=== PATIENT | female | born 1990 | race Caucasian/White ===

== ENCOUNTER 2019-05-10 15:27 | Emergency (ER) | payer OTHER, SELFPAY ==
[2019-05-10 15:33] VITALS: BP 165/80; PULSE 67; RESP 16; TEMP 36.8; O2SAT 100
--- NOTE | 2019-05-10 15:34 | ED.GENADULT ---
HPI - General Adult General Chief complaint: Dental/Oral Stated complaint: tooth Ache Time Seen by Provider: 05/10/19 15:40 Source: patient Mode of arrival: ambulatory Limitations: no limitations History of Present Illness HPI narrative: 28-year-old female patient presents to the [facility] with complaints of left upper dental pain for the past 2 days. Patient states that she does have some bad teeth that she is aware of and is supposed to be getting a root canal done from her dentist. Patient states that she did try calling her dental office but they were not in today. Patient states she has had increased pain to the left upper dental cavity area since yesterday. Patient states she has been taking Tylenol, ibuprofen and using Orajel without much relief. Related Data Home Medications Medication Instructions Recorded Confirmed famotidine 10 mg PO DAILY 05/10/19 05/10/19 Allergies Allergy/AdvReac Type Severity Reaction Status Date / Time amoxicillin Allergy Unknown Rash Verified 05/10/19 15:41 Review of Systems Review of Systems: Narrative: CONSTITUTIONAL: Denies fever, chills, or sweats. EYES: Denies visual changes, redness, or discharge. ENT: Denies rhinorrhea, congestion, sore throat, or otalgia. Positive left upper dental pain CARDIOVASCULAR: Denies chest pain, palpitations, or edema. RESPIRATORY: Denies cough or dyspnea. GASTROINTESTINAL: Denies abdominal pain, nausea, vomiting, or diarrhea. GENITOURINARY: Denies dysuria or hematuria. SKIN: Denies rash or itching. MUSCULOSKELETAL: Denies back pain, joint pain, or myalgia. NEUROLOGIC: Denies headache, numbness, or weakness. PSYCHIATRIC: Denies anxiety or depression. PMFSH Comments At the time of my signature I agree with nursing past medical history, surgical, social, and family history. There is no relevant family history pertinent to the presenting complaint. Exam Narrative: Exam Narrative: GENERAL: Well-appearing, well-nourished, and in no acute distress. HEAD: Normocephalic, atraumatic. EYES: PERRLA and EOMI. ENT: Nares clear, no rhinorrhea or epistaxis. Mucous membranes moist. Patient has a broken tooth noted to the left upper oral cavity. There is slight erythema and redness noted to the gum above the tooth. It is tender to the touch. No obvious abscess noted. No swelling noted to the cheek. NECK: Supple. No lymphadenopathy CHEST: Clear to auscultation. No respiratory distress. HEART: Regular rate and rhythm. No murmur heard. Normal peripheral pulses. ABDOMEN: Soft, nontender, nondistended, normal active bowel sounds. EXTREMITIES: Normal range of motion. No edema. SKIN: Warm, dry, no rash. NEURO: No focal deficits. Alert and oriented x3. Course Vital Signs Vital signs: Vital signs reviewed. Medical Decision Making Differential Diagnosis Differential Diagnosis: Differential diagnosis: Dental caries, periodontal disease, avulsed tooth, tooth infections, mandibular infection, Francisco's angiana, upper tooth infection, dry socket, gingivitis, acute necrotizing ulcerative gingivitis, sialolithiasis. Discussed with patient we will go ahead and give her some pain medication to help with the pain while the antibiotic kicks in. Discussed with patient that she should try and call her dentist office on Sunday to see if they have any other recommendations or see if they would be able to get her an to be seen for her tooth. Patient verbalized understanding denies any other questions or concerns at this time. Critical Care Time Critical Care Time Critical Care Time: No Discharge Plan Discharge Clinical Impression: Toothache, Dental caries Patient Disposition: Home, Self-Care Condition: Stable Instructions: Antibiotic Form, Toothache (ED) Additional Instructions: Antibiotic as directed Avoid temperature extremes May apply heat or ice to the face Gentle brushing and flossing Alternate Tylenol and ibuprofen as needed for pain Follow-up with thomas
== END 2019-05-10 15:52 | disposition home or self-care (01) ==
PROVIDERS: Emergency Provider Nurse Practitioner Family
DX: K02.9 Dental caries, unspecified (principal); K21.9 Gastro-esophageal reflux disease without esophagitis
CPT/HCPCS: 99213; G0463

== ENCOUNTER 2023-08-28 16:51 | Emergency (ER) | payer OTHER, SELFPAY ==
--- NOTE | ~2023-08-28 | XR_ITS ---
EXAMINATION: XR foot RT min 3V DATE: 08/28/2023 17:21 INDICATION: Right foot pain and swelling. TECHNIQUE: 4 views of right foot were obtained. COMPARISON: None. FINDINGS: Bone alignment is normal. No fracture. There is mild osteoarthritis of talonavicular joint. There is an enthesophyte of posterior aspect of calcaneal tuberosity. IMPRESSION: 1. Mild talonavicular joint osteoarthritis. Reviewed, dictated and finalized at location E.
[2023-08-28 16:59] VITALS: BP 154/79; PULSE 92; RESP 20; TEMP 36.8
--- NOTE | 2023-08-28 17:00 | ED.SKABFB ---
HPI - Skin/Abscess/Foreign Bdy General Chief complaint: Extremity Problem,Nontraumatic Stated complaint: Rash on leg/foot Source: patient Mode of arrival: ambulatory Limitations: no limitations History of Present Illness HPI narrative: 32 y/o female presented for c/o redness and swelling to the right foot for 2 days. States it started with a small red area to the outer area of the foot, which has spread towards to toes. States this morning after getting out of bed she had severe pain to the foot and had difficulty walking, but was then able to work her shift today. Denies known injury. States she has been doing yardwork and has some insect bites to the ankle. States the left inner heel is starting to hurt today. Denies decreased ROM, bruising, numbness, tingling or weakness of the foot. Denies lip, tongue, or throat swelling, shortness of breath or wheezing. Denies changes to soap, detergent, lotion, or any other exposures. No one else in the house or any contacts with similar symptoms. Related Data Allergies Allergy/AdvReac Type Severity Reaction Status Date / Time amoxicillin Allergy Unknown Rash Verified 08/28/23 17:09 Review of Systems Review of Systems: CONSTITUTIONAL: Denies body aches, fever, chills, or sweats. CARDIOVASCULAR: Denies chest pain, palpitations, or edema. RESPIRATORY: Denies cough or dyspnea. SKIN: Reports redness to right foot MUSCULOSKELETAL: Reports pain and swelling right foot Denies back pain, joint pain, or myalgia. NEUROLOGIC: Denies headache, numbness, tingling, or weakness. PMFSH Comments At time of signature, I have reviewed and agree with nursing past medical, surgical, social and family history unless otherwise noted. Please see nursing chart for further information. There is no relevant family history pertinent to the presenting complaint Exam Narrative: GENERAL: Well-appearing EYES: conjunctivae clear, and EOMI. ENT: Mucous membranes moist. Oropharynx without edema, erythema or lesions. CHEST: Clear to auscultation. HEART: Regular rate and rhythm. SKIN: Warm, dry. Few scattered red papules to ankles c/w insect bites. EXT: right lateral foot erythematous with swelling, tender with palpation to 5th metatarsal. Mild erythema extending towards dorsum at toes.CMS intact. Ankle nontender with palpation. No bruising or deformity. Full ROM to ankle. NEURO: Alert and oriented x3. Course Course Emergency Course: Patient is aware of diagnosis, understands and agrees to treatment plan. Anticipatory guidance given. Patient agrees to follow-up as directed and is aware of reasons to seek care at the emergency department. Portions of this record may have been created with voice recognition software Level of Care: Express Care Visit Vital Signs Vital signs: Vital Signs Temperature 98.2 F 08/28/23 16:59 Pulse Rate 92 08/28/23 16:59 Respiratory Rate 20 08/28/23 16:59 Blood Pressure 154/79 H 08/28/23 16:59 Oxygen Delivery Room Air 08/28/23 16:59 Temperature 98.2 F 08/28/23 16:59 Pulse Rate 92 08/28/23 16:59 Respiratory Rate 20 08/28/23 16:59 Blood Pressure 154/79 H 08/28/23 16:59 Oxygen Delivery Room Air 08/28/23 16:59 Reviewed MDM - Skin/Abscess/Foreign Bdy MDM Narrative Medical decision making narrative: Pt presented with right foot swelling, few scattered insect bites around the ankle. Xray reviewed with pt; no fracture. No known injury. SALO applied. Discussed possible etiologies including sprain/strain vs cellulitis. Will cover for cellulitis at this time. Discussed physical exam findings. Advised supportive measures and signs/symptoms to go to the ER. Pt is appropriate for outpt treatment and f/u. Differential Diagnosis Differential diagnosis: Likely abscess of skin or subcutaneous tissue, urticaria, herpes zoster, cellulitis and contact dermatitis Imaging Data Radiologist's impression: Patient: Tere Bates : 1990 MR#:
== END 2023-08-28 17:42 | disposition home or self-care (01) ==
PROVIDERS: Emergency Provider Nurse Practitioner Family; PCP Nurse Practitioner Family
DX: R22.41 Localized swelling, mass and lump, right lower limb (principal); K21.9 Gastro-esophageal reflux disease without esophagitis
CPT/HCPCS: 73630; 99203; G0463

== ENCOUNTER 2024-08-20 19:15 | Emergency (ER) | payer OTHER, SELFPAY ==
--- OUTSIDE RECORDS SUMMARY | 2024-08-20 19:17 | XMS_ITS | Data Portability ---
[facility] Organization [facility] Address [address] [place] [address] Care Team Providers Care Terra Cotta Setter Name Role Phone FANNIE CHAO Primary Care Provider Assessment Encounter Date Assessment Date Assessment LastModified by Organization Details LastModified Time 04/08/2021 04/08/2021 Verbal consent for telephone visit was obtained and phone call encounter lasted for approximately 10 min including pre/post visit charting. Not available 04/08/2021 13:03:02 Plan of Treatment Reminders Order Date Submit Date Provider Last Modified By Organization Details Last Modified Time Details Appointments None recorded . Lab urinalys is, dipstick 2019 020 In-Office Order, Internal Use Only DO Not Attach Compendium DO Not Attach Compendium, Do Not Delete/merge, [id number] 0 11:25:17 culture, urine 2019 020 [facility], [address] [facility] [address], [place], [address], 0 06:07:27 TSH, ultra-se nsitive, serum 2018 019 [facility], [address] [facility] [address], [place], [address], 0 10:36:44 lipid panel, serum 2018 019 [facility], [address] [facility], [facility] [address], [place], [address], 0 10:36:43 CMP, serum or plasma 2018 019 [facility], [address] [facility], [facility] [address], [place], [address], 0 10:36:42 CBC 2018 019 [facility], [address] [facility], [facility] [address], [place], [address], 0 10:36:42 Referral None recorded . Procedures None recorded . Surgeries None recorded . Imaging MAMMO, diagnost ic, unilater al - Call pt to schedule apt please. 2021 022 [facility]HENA[facility]X [facility] Scheduling, [address] [place], [address], 2 16:00:14 Medication Orders fluticas one propiona te 50 mcg/actu ation nasal spray,mcnulty spension 2018 019 [email or web address] #[id number], [address] [place], [address], 4 09:36:57 cephalex in 500 mg capsule 2018 019 [facility]/Pharmacy #[id number], [address] [place], [address], 0 10:58:07 famotidi ne 10 mg tablet 2018 019 [facility]armacy #[id number], [address] [place], [address], 2 12:45:01 Patient TargetsNo targets recorded. Patient Instructions Encounter Date Encounter Id Patient Instructions Last Modified By Organization Details Last Modified Time 07/22/2018 [id number] tobacco cessation [email or web address] Not availab le 07/22/2018 11:02:19 02/04/2019 [id number] Learning About Benefits of Quitting Smoking Not available 02/04/2019 15:44:33 tobacco cessation Not availabl e 02/04/2019 15:44:33 gastroesophageal reflux disease (GERD): care instructions Not available 02/04/2019 15:44:33 Take all antibio tics prescribed to you. If any fever or increase in pain, call/return to office. Not available 02/18/2019 16:40:36 f/u 6 months- du ring Summer break is fine follow up as needed Not available 02/18/2019 16:41:33 03/26/2019 [id number] Take all antibio tics if prescribed. Do not use bubble baths. Wipe from front to back. Take 500 mg Vitamin C twice a day or try OTC cranberry pills or 100% cranberry juice. Increase fluids. Not available 03/26/2019 11:36:42 04/08/2021 [id number] Cont on current medications. Not available 04/08/2021 13:04:09 follow up as nee ded, yearly to keep established with provider [facility] Not available 04/08/2021 13:04:36 08/21/2023 [id number] wound care for sutures (patient instructions) Not available 08/21/2023 10:17:24 Wound care as discussed. Not available 08/21/2023 10:17:49 follow up as nee ded, yearly to keep established with provider [facility] Not available 08/21/2023 10:18:01 Reason for Referral None Reported. Results Created Date Observation Date Name Description Value Unit Range Abnormal Flag Note LastModifiedBy Organization Detail LastModifiedTime 02/28/19 20 03/01/2019 CMP, serum or plasm a glucose 80 mg/dL 65-99 Not Available [facility] ([facility]) [address] [facility], [place], [address], 03/01/2019 10:36:42 02/28/19 20 03/01/2019 CMP, serum or plasm a BUN 8 mg/dL 6-20 Not Available [facility] ([facility]) [address] [facility], [place], [address], 03/01/2019 10:36:42 02/28/19 20 03/01/2019 CMP, serum or plasm a creatinine 0.63 mg/dL 0.57-1 .00 Not Available [facility] ([facility]) [address] [facility] [place], [address], 03/01/2019 10:36:42 02/28/19 20 03/01/2019 CMP, serum or plasm a eGFR if nonafricn AM 122 mL/mi n/1.7 3 >59 Not Available [facility] ([facility]) [address] [facility] [place], [address], 03/01/2019 10:36:42 02/28/19 20 03/01/2019 CMP, serum or plasm a eGFR if africn AM 141 mL/mi n/1.7 3 >59 Not Available [facility] ([facility]) [address] [place], [address], 03/01/2019 10:36:42 02/28/19 20 03/01/2019 CMP, serum or plasm a BUN/creatini ne ratio 13 9-23 Not Available [facility] ([facility]) [address] [place], [address], 03/01/2019 10:36:42 02/28/19 20 03/01/2019 CMP, serum or plasm a sodium 140 mmol/ L 134-14 4 Not Available [facility] ([facility]) [address] [place], [address], 03/01/2019 10:36:42 02/28/19 20 03/01/2019 CMP, serum or plasm a potassium 4.6 mmol/ L 3.5-5. 2 Not Available [facility] ([facility]) [address] [place], [address], 03/01/2019 10:36:42 02/28/19 20 03/01/2019 CMP, serum or plasm a chloride 100 mmol/ L 96-106 Not Available [facility] ([facility]) [address] [facility], [place], [address], 03/01/2019 10:36:42 02/28/1903/01/2019 CMP, serum or plasm a carbon dioxide, total 25 mmol/ L Not Available [facility] ([facility]) [address] [facility] [place], [address], 03/01/2019 10:36:42 02/28/1903/01/2019 CMP, serum or plasm a calcium 8.9 mg/dL 8.7-10 .2 Not Available [facility] ([facility]) [address] [facility] [place], [address], 03/01/2019 10:36:42 02/28/1903/01/2019 CMP, serum or plasm a protein, total 6.6 g/dL 6.0-8. 5 Not Available [facility] ([facility]) [address] [facility], [place], [address], 03/01/2019 10:36:42 02/28/1903/01/2019 CMP, serum or plasm a albumin 3.8 g/dL 3.5-5. 5 Eff ectiv e Janua ry 2019 Album in refer ence* * inter corey will be guerrero ing to: Age Male Femal e 0 - 7 days 3.6 - 4.9 3.6 - 4.9 8 - 30 days 3.4 - 4.7 3.4 - 4.7 1 - 6 month 3.7 - 4.8 3.7 - 4.8 7 month s - 2 years 3.9 - 5.0 3.9 - 5.0 3 - 5 years 4.0 - 5.0 4.0 - 5.0 6 - 12 years 4.1 - 5.0 4.0 - 5.0 13 - 30 years 4.1 - 5.2 3.9 - 5.0 31 - 50 years 4.0 - 5.0 3.8 - 4.8 51 - 60 years 3.8 - 4.9 3.8 - 4.9 61 - 70 years 3.8 - 4.8 3.8 - 4.8 71 - 80 years 3.7 - 4.7 3.7 - 4.7 81 - 89 years 3.6 - 4.6 3.6 - 4.6 >89 years 3.5 - 4.6 3.5 - 4.6 Not Available [facility] ([facility]) [address] [facility] [place], [address], 03/01/2019 10:36:42 02/28/19 20 03/01/2019 CMP, serum or plasm a globulin, total 2.8 g/dL 1.5-4. 5 Not Available [facility] ([facility]) [address] [facility] [place], [address], 03/01/2019 10:36:42 02/28/1903/01/2019 CMP, serum or plasm a A/G ratio 1.4 1.2-2. 2 Not Available [facility] ([facility]) [address] [place], [address], 03/01/2019 10:36:42 02/28/1903/01/2019 CMP, serum or plasm a bilirubin, total 0.3 mg/dL 0.0-1. 2 Not Available [facility] ([facility]) [address] [place], [address], 03/01/2019 10:36:42 02/28/1903/01/2019 CMP, serum or plasm a alkaline phosphatase 95 IU/L 39-117 Not Available [facility] ([facility]) [address] [place], [address], 03/01/2019 10:36:42 02/28/1903/01/2019 CMP, serum or plasm a AST (SGOT) 14 IU/L 0-40 Not Available [facility] ([facility]) [address] [place], [address], 03/01/2019 10:36:42 02/28/1903/01/2019 CMP, serum or plasm a ALT (SGPT) 15 IU/L 0-32 Not Available [facility] ([facility]) [address] [facility], [place], [address], 03/01/2019 10:36:42 02/28/19 20 03/01/2019 CBC WBC 8.9 x10e3 /uL 3.4-10 .8 Not Available [facility] ([facility]) [address] [facility], [place], [address], 03/01/2019 10:36:42 02/28/19 20 03/01/2019 CBC RBC 4.50 x10e6 /uL 3.77-5 .28 Not Available [facility] ([facility]) [address] [facility], [place], [address], 03/01/2019 10:36:42 02/28/19 20 03/01/2019 CBC hemoglobin 12.6 g/dL 11.1-1 5.9 Not Available [facility] ([facility]) [address] [facility], [place], [address], 03/01/2019 10:36:42 02/28/1903/01/2019 CBC hematocrit 38.1 % 34.0-4 6.6 Not Available [facility] ([facility]) [address] [facility], [place], [address], 03/01/2019 10:36:42 02/28/1903/01/2019 CBC MCV 85 fL 79-97 Not Available [facility] ([facility]) [address] [facility], [place], [address], 03/01/2019 10:36:42 02/28/1903/01/2019 CBC MCH 28.0 pg 26.6-3 3.0 Not Available [facility] ([facility]) [address] [facility], [place], [address], 03/01/2019 10:36:42 02/28/1903/01/2019 CBC MCHC 33.1 g/dL 31.5-3 5.7 Not Available [facility] ([facility]) [address] [facility], [place], [address], 03/01/2019 10:36:42 02/28/19 20 03/01/2019 CBC RDW 13.8 % 11.7-1 5.4 Ple ase note refer ence lee corey guerrero e Not Available [facility] ([facility]) [address] [facility], [place], [address], 03/01/2019 10:36:42 02/28/19 20 03/01/2019 CBC NRBC TREER Not Available [facility] ([facility]) [address] [facility], [place], [address], 03/01/2019 10:36:42 02/28/19 20 03/01/2019 lipid panel , serum cholesterol, total 158 mg/dL 100-19 9 Not Available [facility] ([facility]) [address] [facility], [place], [address], 03/01/2019 10:36:43 02/28/1903/01/2019 lipid panel , serum triglyceride s 71 mg/dL 0-149 Not Available [facility] ([facility]) [address] [facility], [place], [address], 03/01/2019 10:36:43 02/28/1903/01/2019 lipid panel , serum HDL cholesterol 38 mg/dL >39 below low normal Not Available [facility] ([facility]) [address] [facility], [place], [address], 03/01/2019 10:36:43 02/28/1903/01/2019 lipid panel , serum VLDL cholesterol laisha 14 mg/dL 5-40 Not Available [facility] ([facility]) [address] [facility], [place], [address], 03/01/2019 10:36:43 02/28/19 20 03/01/2019 lipid panel , serum LDL cholesterol calc 106 mg/dL 0-99 above high normal Not Available [facility] ([facility]) [address] [facility], [place], [address], 03/01/2019 10:36:43 02/28/19 20 03/01/2019 lipid panel , serum comment: TREER Not Available [facility] ([facility]) [address] [facility], [place], [address], 03/01/2019 10:36:43 02/28/19 20 03/01/2019 TSH, ultra -sens itive , serum TSH 1.590 uIU/m L 0.450- 4.500 Not Available [facility] ([facility]) [address] [facility], [place], [address], 03/01/2019 10:36:43 03/26/19 20 03/29/2019 cultu re, urine urine culture,comp rehensive Final report Not Available [facility] ([facility]) [address] [facility], [place], [address], 03/29/2019 06:07:27 03/26/1903/29/2019 cultu re, urine result 1 Commen t Mixed uroge nital jordan 2,000 Colon ies/m L Not Available [facility] ([facility]) [address] [facility], [place], [address], 03/29/2019 06:07:27 03/26/1903/26/2019 urina lysis , dipst ick Leukocytes Negati ve Not Available In-Office Order Internal Use Only DO Not Attach Compendium DO Not Attach Compendium, Do Not Delete/merge, 03/26/2019 10:59:03 03/26/1903/26/2019 urina lysis , dipst ick Nitrite negati ve Not Available In-Office Order Internal Use Only DO Not Attach Compendium DO Not Attach Compendium, Do Not Delete/merge, [id number] 03/26/2019 10:59:03 03/26/1903/26/2019 urina lysis , dipst ick Urobilinogen .2 Not Available In-Of fice Order Internal Use Only DO Not Attach Compendium DO Not Attach Compendium, Do Not Delete/merge, [id number] 03/26/2019 10:59:03 03/26/1903/26/2019 urina lysis , dipst ick Protein Negati ve Not Available In-Office Order Internal Use Only DO Not Attach Compendium DO Not Attach Compendium, Do Not Delete/merge, [id number] 03/26/2019 10:59:03 03/26/1903/26/2019 urina lysis , dipst ick pH 5.0 Not Available In-Office Order Internal Use Only DO Not Attach Compendium DO Not Attach Compendium, Do Not Delete/merge, 03/26/2019 10:59:03 03/26/1903/26/2019 urina lysis , dipst ick Blood Negati ve Not Available In-Office Order Internal Use Only DO Not Attach Compendium DO Not Attach Compendium, Do Not Delete/merge, [id number] 03/26/2019 10:59:03 03/26/19 20 03/26/2019 urina lysis , dipst ick Specific Chapman 1.030 Not Available In-Off ice Order Internal Use Only DO Not Attach Compendium DO Not Attach Compendium, Do Not Delete/merge, [id number] 03/26/2019 10:59:03 03/26/1903/26/2019 urina lysis , dipst ick Ketone Negati ve Not Available In-Office Order Internal Use Only DO Not Attach Compendium DO Not Attach Compendium, Do Not Delete/merge, [id number] 03/26/2019 10:59:03 03/26/1903/26/2019 urina lysis , dipst ick Bilirubin Negati ve Not Available In-Office Order Internal Use Only DO Not Attach Compendium DO Not Attach Compendium, Do Not Delete/merge, 03/26/2019 10:59:03 03/26/1903/26/2019 urina lysis , dipst ick Glucose Negati ve Not Available In-Office Order Internal Use Only DO Not Attach Compendium DO Not Attach Compendium, Do Not Delete/merge, [id number] 03/26/2019 10:59:03 03/26/1903/26/2019 urina lysis , dipst ick Appearance Clear Not Available In-Offi ce Order Internal Use Only DO Not Attach Compendium DO Not Attach Compendium, Do Not Delete/merge, [id number] 03/26/2019 10:59:03 03/26/19 20 03/26/2019 urina lysis , dipst ick Color Dark Yellow Not Available In-Office Order Internal Use Only DO Not Attach Compendium DO Not Attach Compendium, Do Not Delete/merge, [id number] 03/26/2019 10:59:03 08/05/19 22 07/29/2021 MAMMO , diagn ostic , digit al, bilat eral No observ ation record ed. [email or web address] [facility] [address], [place], [address], 09/01/2021 09:21:51 08/06/19 22 MAMMO , diagn ostic , digit al, bilat eral No observ ation record ed. [email or web address] [facility] Scheduling [address] [place], [address], 08/09/2021 12:23:18 08/06/19 22 US, berta t, bilat eral, w/ axill a No observ ation record ed. [facility] ([facility]) Scheduling [address] [place], [address], 08/09/2021 12:23:19 02/01/20 22 01/31/2022 MAMMO , scree cristofer, digit al, bilat eral No observ ation record ed. [facility] [address] [place], [address], 02/01/2022 12:51:39 Result Notes None recorded. Problems Name Problem SNOMED Code Status Onset Date Resolution Date Notes Provider Name and Address Organization Details Recorded Time Generalized anxiety disorder 77013357 Active Linda Dumont PA-C Attn: Jose g,[address] [facility], [place], [address], [facility] 9 10:38:31 Tenderness of breast 80345905 Active 2021 Fannie Chao APN, FNP-C Attn: Jose hill,[address] [facility], [place], [address], [place] - [facility] 2 13:00:46 Gastroesophage al reflux disease 160619353 Active 2015 Linda Dumont PA-C Attn: Jose hill,[address] [facility] [facility], [place], [address], [place] - [facility] 6 15:25:21 Tobacco user 620015418 Active 2016 Linda Dumont PA-C Attn: Jose hill,[address] [facility], [place], [address], [facility] - [facility] 7 15:56:39 Problem Notes None recorded. Procedures Surgical History Date Name Laterality Status Provider Name and Address Organization Details Recorded Time 08/21/19 24 Suture/Staple removal completed Fannie Chao APN, FNP-C Attn: Accounting,[address], [place], [address], [facility] 08/21/2023 10:17:19 07/19/19 17 Nebulizer tx completed Linda Dumont PA-C Attn: Accounting,[address], [place], [address], [facility] - [facility] 07/18/2016 18:36:36 02/19/19 14 Caesarean Section completed Valencia Eckert, [facility] - [facility] 12/14/2015 15:16:47 02/19/19 09 Caesarean Section completed Valencia Eckert, [facility] 12/14/2015 15:16:38 02/19/19 05 Tonsillectomy completed Valencia Faustining, [facility] - [facility] 12/14/2015 15:16:25 Imaging Results None recorded. Procedure Notes None recorded. Medical Equipment None Reported. Allergies Allergen ID Allergen Name Allergen Category Reaction Reaction Severity Criticality Documentation Date Start Date Code Code System Note Provider Name and Address Organization Details Recorded Time 33330 amoxicill in medicatio n hives severe Not available 12/14/2015 723 RxNorm Valencia Dickinson, DAISY null, [place] - [facility] 6 15:11:22 27562 fish derived food,medi cation hives moderate Not available 12/22/20152015 96755 UNK cod Linda Dumont PA-C Attn: Accountkimberlee g,[address], [place], [address], [facility] - [facility] 6 13:29:29 35411 azithromy romeo medicatio n angioedem a Not available Not available 07/24/2016 03629 RxNorm Linda Dumont PA-C Attn: Accountkimberlee g,[address], [place], [address], [facility] - [facility] 7 18:11:29 Medications Name Sig Start Date Stop Date Status Note LastModified by Organization Details LastModified Time cyclobenz aprine 10 mg tablet Take 1 tablet every day by oral route as needed. 06/05 completed Not Available Not Available Not Available Lice Killing 0.33 %-4 % shampoo USE DIRECTED active Not Available Not Available No t Available prednison e 10 mg tablet 12/13 completed Not Available Not Available Not Available doxycycli ne hyclate 100 mg capsule TAKE 1 CAPSULE BY MOUTH TWICE A DAY FOR 7 DAYS 08/20 completed Not Available Not Available Not Available nicotine 14 mg/24 hr daily transderm al patch Apply 1 patch every day by transder mal route. 06/05 completed pt never started Not Available Not Available Not Available clindamyc in HCl 300 mg capsule TAKE ONE CAPSULE BY MOUTH 4 TIMES A DAY UNTIL GONE 04/08 completed Not Available Not Available Not Available albuterol sulfate 2.5 mg/3 mL (0.083 %) solution for nebulizat ion one neb tx inhaled in office 07/24 completed Not Available Not Available Not Available famotidin e 10 mg tablet Take 1 tablet every day by oral route. 04/08 completed she has been taking tums Not Available Not Available Not Available azithromy romeo 250 mg tablet TAKE 2 TABLETS (500 MG) BY ORAL ROUTE ONCE DAILY FOR 1 DAY THEN 1 TABLET (250 MG) BY ORAL ROUTE ONCE DAILY FOR 4 DAYS 07/24 completed Not Available Not Available Not Available ibuprofen 800 mg tablet 08/20 completed prn Not Available Not Available Not Available Lidocaine Viscous 2 % mucosal solution 12/13 completed Not Available Not Available Not Available tizanidin e 4 mg tablet TAKE 1 TABLET BY MOUTH EVERYDAY AT BEDTIME 03/26 completed prn Not Available Not Available Not Available fluconazo le 150 mg tablet 12/13 completed Not Available Not Available Not Available ranitidin e 300 mg tablet Take 1 tablet every day by oral route at bedtime. 02/04 completed pt thinks she is to be taking famotidi ne Not Available Not Available Not Available prednison e 20 mg tablet Take one tablet daily by mouth daily 07/18 completed Not Available Not Available Not Available permethri n 5 % topical cream 06/05 completed Not Available Not Available Not Available clindamyc in HCl 150 mg capsule 12/13 completed Not Available Not Available Not Available acetamino phen 300 mg-codein e 30 mg tablet 12/13 completed Not Available Not Available Not Available ciproflox acin 500 mg tablet 12/13 completed Not Available Not Available Not Available sulfameth oxazole 800 mg-trimet hoprim 160 mg tablet Take 1 tablet every 12 hours by oral route for 5 days. 09/25 completed Not Available Not Available Not Available omeprazol e 40 mg capsule,d elayed release Take 1 capsule every day by oral route. 06/05 completed Not Available Not Available Not Available tramadol 50 mg tablet 12/13 completed Not Available Not Available Not Available triamcino lone acetonide 0.1 % topical cream APPLY A THIN LAYER TO THE AFFECTED AREA(S) BY TOPICAL ROUTE 2 TIMES PER DAY 06/05 completed Not Available Not Available Not Available acyclovir 800 mg tablet 08/20 completed Not Available Not Available Not Available Tessalon Perles 100 mg capsule Take 1 capsule 3 times a day by oral route. 07/24 completed not Rx Not Available Not Available Not Available propranol ol 10 mg tablet take 1 tab PO TID PRN anxiety 04/08 completed Not Available Not Available Not Available famotidin e 20 mg tablet TAKE 1 TABLET BY MOUTH TWICE A DAY 09/25 completed Not Available Not Available Not Available Lice Treatment (permethr in) 1 % topical liquid APPLY A SUFFICIE NT AMOUNT OF SHAMPOO BY TOPICAL ROUTE ONCE ALLOW TO REMAIN ON HAIR FOR 10 MINUTES BEFORE RINSING OFF WITH WATER repeat treatmen t 7 days after first treatmen t 06/05 completed 5% covered by insuranc e not 1% Not Available Not Available Not Available cephalexi n 500 mg capsule Take 1 capsule 3 times a day by oral route for 10 days. 03/26 completed Not Available Not Available Not Available pantopraz ole 40 mg tablet,de layed release Take 1 tablet every day by oral route. 06/05 completed Not Available Not Available Not Available monteluka st 10 mg tablet Take 1 tablet every day by oral route. 06/05 completed Not Available Not Available Not Available Cheratuss in AC 10 mg-100 mg/5 mL oral liquid Take 10 mL as needed by oral route at bedtime. 05/16 completed Not Available Not Available Not Available methylpre dnisolone 4 mg tablets in a dose pack Take as directed on package 04/08 completed Not Available Not Available Not Available dexametha sone 0.5 mg tablet 08/20 completed Not Available Not Available Not Available cefdinir 300 mg capsule Take 1 capsule every 12 hours by oral route for 7 days. 05/16 completed Not Available Not Available Not Available fluticaso ne propionat e 50 mcg/actua tion nasal spray,arpan pension INSTILL 1 SPRAY IN EACH NOSTRIL DAILY NEEDED FOR CONGESTI ON OR POST-GUSTAVO AL DRAINAGE 08/20 completed Not Available Not Available Not Available Ventolin HFA 90 mcg/actua tion aerosol inhaler Inhale 2 puffs every 4 hours by inhalati on route as needed. 06/05 completed Not Available Not Available Not Available Allergy Relief (loratadi ne) 10 mg tablet Take 1 tablet every day by oral route. 08/20 completed Not Available Not Available Not Available NeilMed NasaFlo packet with sinus rinse device use as directed 09/25 completed Not Available Not Available Not Available Loratadin e-D 5 mg-120 mg tablet,ex tended release 12 hr Take 1 tablet every 12 hours by oral route for 10 days. 07/18 completed Not Available Not Available Not Available bupropion HCl 150 mg tablet,12 hr sustained -release( smoking deterrent ) Take 1 tablet twice a day by oral route. 06/05 completed pt never started Not Available Not Available Not Available Vitals Date Recorded Body height Body mass index (BMI) Body weight Oxygen saturation Oxygen saturation in Arterial blood by Pulse oximetry Heart rate Respiratory rate Body temperature Systolic blood pressure Diastolic blood pressure Provider Name and Address Organization Details Last Updated DateTime 0 160.02 cm 38.5 kg/m2 23175.3 4 g 97 % 97 % 94 /min 16 /min 97.9 [degF] 126 mm[Hg] 82 mm[Hg] Leonila Billings MA [place] [facility] 0 11:01:59 Date Recorded Body height Body mass index (BMI) Body weight Heart rate Respiratory rate Body temperature Oxygen saturation Oxygen saturation in Arterial blood by Pulse oximetry Systolic blood pressure Diastolic blood pressure Provider Name and Address Organization Details Last Updated DateTime 9 160.02 cm 37.5 kg/m2 44275.8 6 g 71 /min 16 /min 98 [degF] 98 % 98 % 126 mm[Hg] 86 mm[Hg] TRUDY Ponce [facility] 9 10:11:45 Date Recorded Body height Body mass index (BMI) Body weight Oxygen saturation Oxygen saturation in Arterial blood by Pulse oximetry Respiratory rate Body temperature Heart rate Systolic blood pressure Diastolic blood pressure Provider Name and Address Organization Details Last Updated DateTime 4 160.02 cm 39 kg/m2 41230.3 2 g 98 % 98 % 16 /min 97.5 [degF] 80 /min 116 mm[Hg] 80 mm[Hg] TRUDY Toribio [facility] 4 09:40:25 Date Recorded Body height Body mass index (BMI) Body weight Oxygen saturation Oxygen saturation in Arterial blood by Pulse oximetry Heart rate Respiratory rate Body temperature Systolic blood pressure Diastolic blood pressure Provider Name and Address Organization Details Last Updated DateTime 9 160.02 cm 37.4 kg/m2 78840.3 4 g 97 % 97 % 83 /min 16 /min 97.2 [degF] 124 mm[Hg] 82 mm[Hg] Leonila Billings [facility] 9 15:49:33 Social History Question Answer Notes LastModified by Organizat ion Details LastModified Time Tobacco Smoking Status Current Every Day Smoker Valencia Dickinson MA null, [place] [facility] 12/14/2015 15:13:59 Do You Have An Advance Directive? No Information not available 02/04/2019 Are You Blind Or Do You Have Difficulty Seeing? No Information not available 04/08/2021 What Is Your Level Of Caffeine Consumption? Moderate Coffee [email or web address] Information not available 06/05/2018 How Much Tobacco Do You Chew? None Information not available 05/16/2017 In The 14 Days Before Symptom Onset, Have You Had Close Contact With A Laboratory-confir med COVID-19 While That Case Was Ill? No Information not available 04/08/2021 In The 14 Days Before Symptom Onset, Have You Had Close Contact With A Person Who Is Under Investigation For COVID-19 While That Person Was Ill? No Information not available 04/08/2021 Have You Been To An Area Known To Be High Risk For COVID-19? No Information not available 04/08/2021 Are You Deaf Or Do You Have Serious Difficulty Hearing? No Information not available 04/08/2021 What Type Of Diet Are You Following? REGULAR Information not available 12/14/2015 Which Illicit Or Recreational Drugs Have You Used? None Information not available 05/16/2017 Education 12 Informati on not available 05/16/2017 Are There Any Guns Present In Your Home? No Information not available 02/04/2019 Hard Of Hearing Or Deaf In One Or Both Ears? No Information not available 05/16/2017 Legally Blind In One Or Both Eyes? No Information no t available 05/16/2017 Marital Status Single Informati on not available 12/14/2015 What Was The Date Of Your Most Recent Tobacco Screening? 08/21/2023 Information not available 08/21/2023 How Many Children Do You Have? 2 Information not available 08/21/2023 Performs Monthly Self-breast Exam? Yes [email or web address] Information no t available 05/16/2017 What Is Your Relationship Status? Single Information not available 04/08/2021 Do You Use Your Seat Belt Or Car Seat Routinely? Yes Information not available 08/21/2023 Seat Belts Used Routinely Yes [email or web address] Information not available 05/16/2017 Smoke Alarm In Home Yes [email or web address] Information not available 05/16/2017 Do You Have Smoke And Carbon Monoxide Detectors In Your Home? Yes Information not available 04/08/2021 At What Age Did You Start Smoking Tobacco? 17 Information not available 04/08/2021 Are You Passively Exposed To Smoke? Yes Information no t available 04/08/2021 How Much Tobacco Do You Smoke? 0.5 PPD Information not available 12/14/2015 General Stress Level Low [email or web address] Information not available 02/08/2016 Do You Use Sunscreen Routinely? No Information not available 02/04/2019 Has Tobacco Cessation Counseling Been Provided? Yes [email or web address] Information not available 06/05/2018 On What Date Was Tobacco Cessation Counseling Provided? 08/21/2023 Information not available 08/21/2023 How Many Years Have You Smoked Tobacco? 15 08/21/23 Information not available 08/21/2023 Sex: Female Functional Status Question Answer Note LastModified by Organizat ion Details LastModified Time Do you use any illicit or recreational drugs? No Information not available 04/08/2021 Do you or have you ever used any other forms of tobacco or nicotine? No Information not available 04/08/2021 What is your level of alcohol consumption? None Information not available 12/14/2015 Do you or have you ever used smokeless tobacco? Never used smokeless tobacco Information not available 02/04/2019 Are you currently employed? Yes Information not available 08/21/2023 Are you able to care for yourself? 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 Never used electronic cigarettes Information not available 02/04/2019 What is your exercise level? None Information not available 08/21/2023 Mental Status Question Answer Note LastModified by Organization D etails LastModified Time Do you feel stressed (tense, restless, nervous, or anxious, or unable to sleep at night)? [id number] Information not available 04/08/2021 Family History Nothing Reported. Medical History Condition Response Coronary Artery Disease N Other N Atrial Fibrillation N High Blood Pressure N Thyroid Problems N Kidney or Bladder Problems N Depression N COPD N Blood Clots N GI Problems Y Skin Problems N Eating Disorder N Anemia N Heart Attack (MT) N Diabetes N Anxiety Disorder Y Muscle, Joint, or Bone Problems N Seizures/Epilepsy N Acid Reflux (GERD) Y Cancer N Stroke N Allergies N Asthma N ADHD N Substance Abuse N High Cholesterol N Hepatitis N Liver Disease N Schizophrenia N Headaches N Osteoporosis N Heart Failure N Gynecological History Statement/Question Response Menses Monthly Y Duration of Flow (days) 5 Current Control Method Tubal Ligat ion Date of LMP 08/13/2023 LMP Definite Obstetrics History GPAL:G 2 P 2 0 0 2 Type Value Full Term 2 Living 2 Total 2 Immunizations Vaccine Type Date Status Note Provider Name and Address Organization Details Recorded Time Tdap 08/13/19 24 completed Fannie Chao APN, MANAGER [employer] Attn: Accounting[address] [place], [address], [facility] 08/21/2023 10:18:34 Influenza, split virus, quadrivalent, preservative 02/05/20 19 cancelled patient objection Not Available [employer] 03/08/2019 02:40:25 Past Encounters Encounter ID Performer Location Encounter Start Date Encounter Closed Date Diagnosis/Indication Diagnosis SNOMED-CT Code Diagnosis ICD10 Code Diagnosis Note [id number] YOMAIRA Sellers (Adult Med) [address] [place] [id number] 12/14/2015 14:55:45 12/15/2015 09:47:32 Gastroesophageal reflux disease 217990953 K21.9 Acute urticaria 79256865 9 L50.9 possible contact dermatitis . foot & hand swelling completely resolved w/ prednisone taper Body mass index 30+ - obesity 478735104 Z68.37 Weight gain 8968480 R63. 5 instructed to start a food diary for all meals & snacks and include activity, bring to f/u appt in 2-4 weeks and we can discuss other strategies . [id number] YOMAIRA Sellers (Adult Med) [address] [place] [facility] [place] [address] 01/12/2016 09:57:15 01/12/2016 11:52:43 Overweight 329195500 E66.3 reviewed food diary with patient, definitely room for improvemen t w/ food choices. Tends to eat foods that kids like (spaghetti O's, cheeseburg er, donut, chili dog, ramen noodles, etc. d/w her opting for higher lean protein foods and choosing protein bars over granola bars. Also discussed possibly not getting enough good calories, encouraged her to snack on fruits & vegetables during the day. She has a hard time finding time to exercise when working, discussed getting free Сергей on phone for pedometer to track daily steps and see if she can find 10-15 min in evenings to do home exercises. Also discussed not solely relying on scale, but to do measuremen ts and monitor inches lost over time, she needs to give herself more than one month to try something. Discourage d her from trying OTC supplement s as they are unreliable and usually contain caffeine as a way to boost energy. Pruritic rash 48709449 L 28.2 resolved Body mass index 30+ - obesity 330722768 Z68.37 see above Foot pain 51268841 M79.6 72 possible plantar fasciitis as cause of pain. discussed stretches to try at home. [id number] YOMAIRA Sellers (Adult Med) [address] [place] [address] 02/08/2016 11:07:51 02/08/2016 11:53:49 Acute sinusitis 42532764 J01.90 post-nasal drainage likely causing cough. If nasal spray is generic Afrin, recommendi ng stopping as it can cause rebound swelling w/ prolonged use Gastroesop hageal reflux disease without esophagitis 599148283 K21.9 unchanged sxs with famotidine bid. cont current treatment, food avoidance and weight loss, re-evaluat e at follow up Body mass index 30+ - obesity 163013780 Z68.38 3 lb weight gain since last visit. Encouraged pt to continue 4559-3041 calorie diet, exercise and be patient with results [id number] YOMAIRA Sellers (Adult Med) [address] [place] [address] 03/02/2016 14:33:47 03/08/2016 09:56:56 Eruption 134175254 R21 unknown etiology, may be contact dermatitis with ring around upper forearm to area where she applied gauze. Cont hydrocorti sone, take benadryl tonight and non-drowsy antihistam ine during the day. Apply ice. Call tomorrow if getting worse. [id number] YOMAIRA Sellers (Adult Med) [address] [place] [address] 04/03/2016 09:43:31 04/03/2016 13:39:32 Congestion of nasal sinus 27231869 R09.81 cont flonase & claritin. No further abx at this time. Try another short course of steroids. Pruritic rash 91253744 L 28.2 recurrent to different parts of the body, not related to any particular food, product, etc. [id number] YOMAIRA Sellers (Adult Med) [address] [place] [address] 07/18/2016 14:49:59 07/19/2016 09:00:05 Acute bronchitis with bronchospasm 26514447 J20.9 only mild improvemen t in wheezes/rh onchi after neb tx. Tobacco user 488166957 Z 72.0 patient instructed to quit smoking Body mass index 30+ - obesity 116311258 Z68.36 3 lb weight loss since Mar visit. Cont low laisha diet and increasing exercise tolerance. [id number] MD Osman Espana (Adult Med) [address] [place] [address] 05/16/2017 09:28:08 05/16/2017 11:44:10 Tobacco user 238824211 Z72.0 patient instructed to quit smoking, take wellbutrin BID and start using patches one week after starting med. Call if any problems with medication . Seasonal a llergic rhinitis 982435476 J30.2 Incerased sneezing, congestion , post-nasal drainage this time of year almost every year. try changing claritin to zyrtec or other anti-hista mine; add Singulair during the day. Start using netipot or sinucleans e during allergy season. Cont flonase nasal steroid. doesn't want to take benadryl at night since she has young kids at home. Gastroesop hageal reflux disease without esophagitis 364872265 K21.9 Not controlled on BID dose of famotidine . Reviewed lifestyle & dietary modificati ons w/ patient: Quit smoking, change diet, reviewed foods to avoid for the next 1-2 weeks and to slowly advance diet as tolerated. Start PPI since H2 carmelo didn't help. Body mass index 30+ - obesity 155557196 Z68.36 Weight unchanged, reviewed diet with patient, continue to work on weight loss which will help GERD sxs. [id number] MD Osman Espana (Adult Med) [address] [place] [address] 06/11/2017 15:51:16 06/12/2017 14:32:15 Dysuria 95654146 R30.0 UA negative for acute infection, but stil symptomati c after completing 3 days of abx. will treat for another 5 days, call us or [facility] office if not better by end of week. Seasonal a llergic rhinitis 003992581 J30.2 Cont singulair and claritin. [id number] MD Osman Espana (Adult Med) [address] [place] [address] 07/05/2017 10:39:42 07/06/2017 08:49:45 Vesicular eczema of hands and/or feet 307815363 L30.1 apply TAC to hands/feet . use otc hydrocorti sone 1% to face/neck. [id number] MD Osman Espana (Adult Med) [address] [place] [address] 09/25/2017 09:58:52 09/25/2017 14:05:26 Increased frequency of urination 856192951 R35.0 negative UA, no abx needed. Low back pain 283501115 M54.5 possible muscel strain from recent coughing, use heat, start stretching . Has a sore throat 859439 002 J02.9 neg for strep, likely due to postnasal drainage from allergic rhinitis. cont claritin and singulair. Allergic rhinitis 453330 04 J30.2 cont claritin and singulair [id number] MD Osman Espana (Adult Med) [address] [place] [address] 10/02/2017 10:24:43 10/03/2017 14:49:02 Infection of tooth 411577006 K04.7 Likely source of current right sided neck & jaw pain. She is trying to get into the [facility] dental clinic, but they haven't resumed regular clinic hours yet. Due to PCN allergy, will treat with clindamyci n, instructed her to call if she develops bad diarrhea. 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 Tried cutting it in half, but it just crumbles. Will try tizanadine at bedtime, cont wearing the dental guard until she can be seen at dental clinic. [id number] MD Osman Espana (Adult Med) [address] [place] [address] 06/05/2018 09:54:33 06/17/2018 09:08:37 Generalized anxiety disorder 17797782 F41.1 discussed taking as needed for situations that cause her anxiety, advised can cause fatigue, slow HR, call if any problems w/ med Gastroesop hageal reflux disease without esophagitis 683928338 K21.9 recommend starting med, follow low acid diet, elevate HOB [id number] MD Osman Espana (Adult Med) [address] [place] [address] 07/22/2018 09:58:43 07/23/2018 08:51:09 Has a sore throat 599175787 J02.9 Does not appear infectious , recommend allergy tx and cont GERD tx. Gastroesop hageal reflux disease without esophagitis 408970224 K21.9 cont ranitidine , mehrdad HOB elevated and follow low acid diet, advised to quit smoking Allergic rhinitis 267734 04 J30.2 advised her to use flonase & allergy med every day, postnasal drainage likely contributi ng to sore throst sxs. Tobacco user 399872591 Z 72.0 never started bupropion and nicotine patch. Advised her to quit smoking by continued reduction of cigarettes . [id number] MD Osman Ferguson (Adult Med) [address] [place] [address] 02/04/2019 15:10:35 02/17/2019 09:53:35 Allergic rhinitis 73106695 J30.9 cont flonase Influenza vaccination declined 424753852 Z28.21 refused Gastroesop hageal reflux disease without esophagitis 221644798 K21.9 dwp diet changes, famotidine qd or may increase to bid Tobacco user 612542699 Z 72.0 Smoking cessation encouraged . Cholesterol screening 27 1506083 Z13.220 will check labs Endocrine/ metabolic screening 000039290 Z13.228 lab ordered Acute otitis media 85421 03 H65.03 bilateral TM's with erythema and purulent middle ear fluid, start antibiotic s [id number] MD Osman Ferguson (Adult Med) [address] [place] [address] 03/26/2019 10:40:36 03/27/2019 07:57:04 Right flank pain 260296832 R10.9 urine dip negative, will send for culture and notify pt if abx needed, dwp to increase fluids and RTO if increase in pain or fever or other changes occur. [id number] MD Osman Ferguson (Adult Med) [address] [place] [address] 04/08/2021 08:30:52 04/11/2021 07:29:25 Tenderness of breast 09961991 N64.4 dwp to get new mammogram/ USschedule with Barbie Rosenbaum TREER [id number] MD Osman Ferguson (Adult Med) [address] [place] [address] 08/21/2023 09:27:36 08/27/2023 15:21:31 Removal of suture 03979601 Z48.02 stitch removal in left index finger. Went to ER and got 6 stitches 08/12. states her finger is still really sore and still does not have feeling in finger tip. Health Concerns Section Related Observation LastModified by Organization Detai ls LastModified Time None Recorded Concern Status LastModified by Organization Details LastModified Time None Recorded Advance Directives Directive N: Payers Insurance Date Sequence Insurance Name Policy Number Policy Pritchett Covered Member ID Pritchett Member ID Guarantor Name 09/15/2023 1 [facility] (MEDICAID HMO) [id number] Tere Bates [id number] Tere Bates Notes Date Note Type Note Provider Name and Address Organization Details Recorded Time 07/22/2018 text/html sore throat star arvin 2mo ago, comes & goes but never felt it completely resolved since May visit. saw ENT in Dec but no f/u, wasn't told results of scope. She takes allergy meds PRN, hasn't used lately, denies any congestion, ear fullness, sneezing, etc, only sore throat. Taking GERD med, trying to quit smoking, elevated HOB. 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; Fannie Chao APN, MANAGER [employer] Attn: [address] [facility] [place], [address], [facility] 02/18/2019 16:44:13 03/26/2019 text/html DysuriaReported bypatient.Quality:pre ssure Severity:worsening Duration:2 days Timing:gradual Context:history of kidney infection, pain feels the same and it started this way before Associated Symptoms:no fever; no blisters on genitals; no rash on genitals; no hesitancy; no blood in the urine; normal urine stream;flank painNotes:doesn't burn when she urinates, she has right back pain, urinating frequently but not voiding much Fannie Chao APN, MANAGER [employer] Attn: [address] , [place], [address], [facility] 03/26/2019 11:37:07 04/08/2021 text/html breast pain? Pt called Sunday beacuse her right breast was tender and feeling achy to touch, then pt started her period Sun, and that has improved so she was not sure if she should still have it checked out and she could not get into an ob gyne.no lumps or anything palpable- does have hx cystic breastsalmost felt engourged like she was full Fannie Chao APN, MANAGER [employer] Attn: Accounting[address] [facility], [place], [address], [facility] 04/08/2021 13:08:28 08/21/2023 text/html stitch removal i n left index finger. Went to ER and got 6 stitches 08/12. states her finger is still really sore and still does not have feeling in finger tip. Fannie Chao APN, MANAGER [employer] Attn: Accounting[address] [facility], [place], [address], [facility] 08/21/2023 10:19:10 OBGyn Episode No OBEpisode recorded.
--- OUTSIDE RECORDS SUMMARY | 2024-08-20 19:17 | XMS_ITS | Data Portability ---
Author Organization ZEN CLAYTONJewles Lopes Address [address] [place] [address] Assessment No assessment recorded. Plan of Treatment Reminders Order Date Submit Date Provider Last Modified By Organization Details Last Modified Time Details Appointments None recorded. Lab lipid panel, serum 2014 015 [facility], [address] [place] [address], [place] [address], [place], [address], 5 06:40:47 CMP, serum or plasma 2014 015 [facility], [address] [place] [address], [place] [address], [place], [address], 5 06:40:47 TSH, serum or plasma 2014 015 [facility], [address] [place] [address], [place] [address], [place], [address], 5 06:40:48 CBC w/ auto diff 2014 015 [facility], [address] [place] [address], [facility] [address], [place], [address], 5 06:40:46 Referral None recorded. Procedures None recorded. Surgeries None recorded. Imaging None recorded. Medication Orders clindamycin HCl 300 mg capsule 2015 016 [facility]ogue [id number], [address] [place], [address], 6 15:31:17 tramadol 50 mg tablet 2015 016 dbogue [id number], [address] [place], [address], 6 15:31:17 famotidine 20 mg tablet 2014 015 dbogue [id number], [address] [place], [address], 5 10:48:28 Patient TargetsNo targets recorded. Patient Instructions Encounter Date Encounter Id Patient Instructions Last Modified By Organization Details Last Modified Time 09/18/2014 [id number] When You Want to Lose Weight: Care Instructions [email or web address] Not available 09/18/2014 10:48:28 gastroesophageal reflux disease (GERD): care instructions [email or web address] Not available 09/18/2014 11:25:33 Reason for Referral None Reported. Results Created Date Observation Date Name Description Value Unit Range Abnormal Flag Note LastModifiedBy Organization Detail LastModifiedTime 10/17/19 15 10/17/2014 CBC w/ auto diff WBC 7.9 x10e3 /uL 3.4-10 .8 Not Available [facility] ([facility]) [address] [place], [address], 10/17/2014 06:40:46 10/17/19 15 10/17/2014 CBC w/ auto diff RBC 4.84 x10e6 /uL 3.77-5 .28 Not Available [facility] ([facility]) [address] [place], [address], 10/17/2014 06:40:46 10/17/19 15 10/17/2014 CBC w/ auto diff hemoglobin 13.7 g/dL 11.1-1 5.9 Not Available [facility] ([facility]) [address] [place], [address], 10/17/2014 06:40:46 10/17/19 15 10/17/2014 CBC w/ auto diff hematocrit 40.6 % 34.0-4 6.6 Not Available [facility] ([facility]) [address] [place], [address], 10/17/2014 06:40:46 10/17/19 15 10/17/2014 CBC w/ auto diff MCV 84 fL 79-97 Not Available [facility] ([facility]) [address] [facility], [place], [address], 10/17/2014 06:40:46 10/17/19 15 10/17/2014 CBC w/ auto diff MCH 28.3 pg 26.6-3 3.0 Not Available [facility] ([facility]) [address] [facility], [place], [address], 10/17/2014 06:40:46 10/17/19 15 10/17/2014 CBC w/ auto diff MCHC 33.7 g/dL 31.5-3 5.7 Not Available [facility] ([facility]) [address] [facility], [place], [address], 10/17/2014 06:40:46 10/17/19 15 10/17/2014 CBC w/ auto diff RDW 13.6 % 12.3-1 5.4 Not Available [facility] ([facility]) [address] [facility], [place], [address], 10/17/2014 06:40:46 10/17/19 15 10/17/2014 CBC w/ auto diff neutrophils 57 % Not Available [facility] ([facility] [address] [facility], [place], [address], 10/17/2014 06:40:46 10/17/19 15 10/17/2014 CBC w/ auto diff lymphs 34 % Not Available [facility] ([facility]) [address] [facility], [place], [address], 10/17/2014 06:40:46 10/17/19 15 10/17/2014 CBC w/ auto diff monocytes 7 % Not Available [facility] ([facility]) [address] [facility], [place], [address], 10/17/2014 06:40:46 10/17/19 15 10/17/2014 CBC w/ auto diff eos 2 % Not Available [facility] ([facility]) [address] [place], [address], 10/17/2014 06:40:46 10/17/19 15 10/17/2014 CBC w/ auto diff basos 0 % Not Available [facility] ([facility]) [address] [place], [address], 10/17/2014 06:40:46 10/17/19 15 10/17/2014 CBC w/ auto diff immature cells [facility] Not Available [facility] ([facility] [address] [place], [address], 10/17/2014 06:40:46 10/17/19 15 10/17/2014 CBC w/ auto diff neutrophils (absolute) 4.5 x10e3 /uL 1.4-7. 0 Not Available [facility] ([facility]) [address] [place], [address], 10/17/2014 06:40:46 10/17/19 15 10/17/2014 CBC w/ auto diff lymphs (absolute) 2.7 x10e3 /uL 0.7-3. 1 Not Available [facility] ([facility]) [address] [place], [address], 10/17/2014 06:40:46 10/17/19 15 10/17/2014 CBC w/ auto diff monocytes(ab solute) 0.6 x10e3 /uL 0.1-0. 9 Not Available [facility] ([facility]) [address] [place], [address], 10/17/2014 06:40:46 10/17/19 15 10/17/2014 CBC w/ auto diff eos (absolute) 0.2 x10e3 /uL 0.0-0. 4 Not Available [facility] ([facility]) [address] [facility], [place], [address], 10/17/2014 06:40:46 10/17/19 15 10/17/2014 CBC w/ auto diff baso (absolute) 0.0 x10e3 /uL 0.0-0. 2 Not Available [facility] ([facility]) [address] [facility], [place], [address], 10/17/2014 06:40:46 10/17/19 15 10/17/2014 CBC w/ auto diff immature granulocytes 0 % Not Available [facility]) [address] [facility], [place], [address], 10/17/2014 06:40:46 10/17/19 15 10/17/2014 CBC w/ auto diff immature grans (abs) 0.0 x10e3 /uL 0.0-0. 1 Not Available [facility] ([facility]) [address] [place], [address], 10/17/2014 06:40:46 10/17/1910/17/2014 CBC w/ auto diff NRBC [facility] Not Available [facility] ([facility]) [address] [place], [address], 10/17/2014 06:40:46 10/17/19 15 10/17/2014 CBC w/ auto diff hematology comments: [facility] Not Available [facility] ([facility]) [address] [facility], [place], [address], 10/17/2014 06:40:46 10/17/1910/17/2014 CMP, serum or plasm a glucose, serum 83 mg/dL 65-99 Not Available [facility] ([facility]) [address] [place], [address], 10/17/2014 06:40:46 10/17/19 15 10/17/2014 CMP, serum or plasm a BUN 8 mg/dL 6-20 Not Available [facility] ([facility]) [address] [facility] [place], [address], 10/17/2014 06:40:46 10/17/19 15 10/17/2014 CMP, serum or plasm a creatinine, serum 0.58 mg/dL 0.57-1 .00 Not Available [facility] ([facility]) [address] [facility] [place], [address], 10/17/2014 06:40:46 10/17/19 15 10/17/2014 CMP, serum or plasm a eGFR if nonafricn AM 130 mL/mi n/1.7 3 >59 Not Available [facility] ([facility]) [address] [facility] [place], [address], 10/17/2014 06:40:46 10/17/19 15 10/17/2014 CMP, serum or plasm a eGFR if africn AM 150 mL/mi n/1.7 3 >59 Not Available [facility] ([facility]) [address] [facility], [place], [address], 10/17/2014 06:40:46 10/17/19 15 10/17/2014 CMP, serum or plasm a BUN/creatini ne ratio 14 8-20 Not Available [facility] ([facility]) [address] [facility] [place], [address], 10/17/2014 06:40:46 10/17/19 15 10/17/2014 CMP, serum or plasm a sodium, serum 139 mmol/ L 134-14 4 Not Available [facility] ([facility]) [address] [facility] [place], [address], 10/17/2014 06:40:46 10/17/1910/17/2014 CMP, serum or plasm a potassium, serum 4.7 mmol/ L 3.5-5. 2 Not Available [facility] ([facility]) [address] [facility] [place], [address], 10/17/2014 06:40:46 10/17/19 15 10/17/2014 CMP, serum or plasm a chloride, serum 99 mmol/ L 97-108 Not Available [facility] ([facility]) [address] [place], [address], 10/17/2014 06:40:46 10/17/19 15 10/17/2014 CMP, serum or plasm a carbon dioxide, total 24 mmol/ L 18-29 Not Available [facility] ([facility]) [address] [place], [address], 10/17/2014 06:40:46 10/17/19 15 10/17/2014 CMP, serum or plasm a calcium, serum 9.7 mg/dL 8.7-10 .2 Not Available [facility] ([facility]) [address] [place], [address], 10/17/2014 06:40:46 10/17/19 15 10/17/2014 CMP, serum or plasm a protein, total, serum 7.3 g/dL 6.0-8. 5 Not Available [facility] ([facility]) [address] [place], [address], 10/17/2014 06:40:46 10/17/19 15 10/17/2014 CMP, serum or plasm a albumin, serum 4.7 g/dL 3.5-5. 5 Not Available [facility] ([facility]) [address] [place], [address], 10/17/2014 06:40:46 10/17/1910/17/2014 CMP, serum or plasm a globulin, total 2.6 g/dL 1.5-4. 5 Not Available [facility] ([facility]) [address] [place], [address], 10/17/2014 06:40:46 10/17/19 15 10/17/2014 CMP, serum or plasm a A/G ratio 1.8 1.1-2. 5 Not Available [facility] ([facility]) [address] [place], [address], 10/17/2014 06:40:46 10/17/19 15 10/17/2014 CMP, serum or plasm a bilirubin, total 0.3 mg/dL 0.0-1. 2 Not Available [facility] ([facility]) [address] [facility] [place], [address], 10/17/2014 06:40:46 10/17/19 15 10/17/2014 CMP, serum or plasm a alkaline phosphatase, S 99 IU/L 39-117 Not Available [facility] ([facility]) [address] [facility] [place], [address], 10/17/2014 06:40:46 10/17/19 15 10/17/2014 CMP, serum or plasm a AST (SGOT) 12 IU/L 0-40 Not Available [facility] ([facility]) [address] [place], [address], 10/17/2014 06:40:46 10/17/19 15 10/17/2014 CMP, serum or plasm a ALT (SGPT) 12 IU/L 0-32 Not Available [facility] ([facility]) [address] [place], [address], 10/17/2014 06:40:46 10/17/19 15 10/17/2014 lipid panel , serum cholesterol, total 175 mg/dL 100-18 9 Not Available [facility] ([facility]) [address] [place], [address], 10/17/2014 06:40:47 10/17/19 15 10/17/2014 lipid panel , serum triglyceride s 81 mg/dL 0-114 Not Available [facility] ([facility]) [address] [place], [address], 10/17/2014 06:40:47 10/17/19 15 10/17/2014 lipid panel , serum HDL cholesterol 38 mg/dL >39 below low normal ACCOR DING TO ATP-I II GUIDE LINES , HDL-C >59 MG/DL IS CONSI DERED A NEGAT ENRIQUE RISK FACTO R FOR CHD. Not Available [facility] ([facility]) [address] [facility], [place], [address], 10/17/2014 06:40:47 10/17/19 15 10/17/2014 lipid panel , serum VLDL cholesterol laisha 16 mg/dL 5-40 Not Available [facility] ([facility]) [address] [facility], [place], [address], 10/17/2014 06:40:47 10/17/19 15 10/17/2014 lipid panel , serum LDL cholesterol calc 121 mg/dL 0-119 above high normal Not Available [facility] ([facility]) [address] [facility], [place], [address], 10/17/2014 06:40:47 10/17/19 15 10/17/2014 lipid panel , serum comment: [facility] Not Available [facility] ([facility]) [address] [facility], [place], [address], 10/17/2014 06:40:47 10/17/19 15 10/17/2014 TSH, serum or plasm a TSH 1.260 uIU/m L 0.450- 4.500 Not Available [facility] ([facility]) [address] [facility], [place], [address], 10/17/2014 06:40:47 04/23/19 16 imagi ng/di agnos tic resul t No observ ation record ed. dbogue [facility] [address] [place], [address], 04/26/2015 09:45:30 07/30/19 22 07/29/2021 MAMMO , scree cristofer, digit al, bilat eral No observ ation record ed. rreiterma [facility] [address] [place], [address], 08/11/2021 10:09:12 07/30/19 22 07/29/2021 MAMMO , scree cristofer, digit al, bilat eral No observ ation record ed. rreiterma [facility] [address] [facility], [place], [address], 08/11/2021 10:09:12 Result Notes None recorded. Problems Name Problem SNOMED Code Status Onset Date Resolution Date Notes Provider Name and Address Organization Details Recorded Time Gastroesophage al reflux disease 157004016 Active Emely Onesimo [place] [facility] 5 10:48:28 Tobacco user 127958072 Active Emely avendano, [facility] 5 10:48:28 Obese 544190172 Active Emely Onesimo avend[place] [facility] 5 10:48:28 Infection of tooth 735741966 Active Emely avendano, [facility] 6 15:31:17 Problem Notes None recorded. Procedures Surgical History Date Name Laterality Status Provider Name and Address Organization Details Recorded Time Caesarean Section completed Emely Onesimo [facility] 09/18/2014 10:33:00 Imaging Results None recorded. Procedure Notes None recorded. Medical Equipment None Reported. Allergies Allergen ID Allergen Name Allergen Category Reaction Reaction Severity Criticality Documentation Date Start Date Code Code System Note Provider Name and Address Organization Details Recorded Time 24206 amoxicill in medicatio n hives severe Not available 09/18/2014 723 RxNorm LAZARUS Long[place], [place] [facility] 5 10:13:48 Medications Name Sig Start Date Stop Date Status Note LastModified by Organization Details LastModified Time prednisone 10 mg tablet active Not Available Not Available No t Available clindamycin HCl 300 mg capsule Take 1 capsule every 6 hours by oral route for 10 days. active Not Available Not Available No t Available ibuprofen 800 mg tablet active Not Available Not Available No t Available Lidocaine Viscous 2 % mucosal solution active Not Available Not Available Not Available fluconazole 150 mg tablet active Not Available Not Available No t Available hydrocodone 5 mg-acetaminophe n 325 mg tablet active Not Available Not Availa ble Not Available clindamycin HCl 150 mg capsule active Not Available Not Availab le Not Available acetaminophen 300 mg-codeine 30 mg tablet active Not Available Not Available Not Available ciprofloxacin 500 mg tablet active Not Available Not Availabl e Not Available sulfamethoxazol e 800 mg-trimethoprim 160 mg tablet active Not Available Not Availabl e Not Available tramadol 50 mg tablet Take 1 tablet every 6 hours by oral route as needed. active Not Available Not Available No t Available famotidine 20 mg tablet TAKE ONE TABLET BY MOUTH TWO TIMES A DAY active Not Available Not Available No t Available ibuprofen 600 mg tablet active Not Available Not Available No t Available cyclobenzaprine 5 mg tablet active Not Available Not Available Not Available Vitals Date Recorded Heart rate Body height Oxygen saturation Oxygen saturation in Arterial blood by Pulse oximetry Body weight Body temperature Body mass index (BMI) Systolic blood pressure Diastolic blood pressure Provider Name and Address Organization Details Last Updated DateTime 6 86 /min 160.02 cm 99 % 99 % 59817.6 06224 g 98.2 [degF] 33.5 kg/m2 112 mm[Hg] 86 mm[Hg] Radha Calderon [place] [facility] 6 15:06:40 Date Recorded Respiratory rate Body weight Oxygen saturation Oxygen saturation in Arterial blood by Pulse oximetry Body height Body mass index (BMI) Body temperature Heart rate Systolic blood pressure Diastolic blood pressure Provider Name and Address Organization Details Last Updated DateTime 5 12 /min 39437.0 12506 g 98 % 98 % 160.02 cm 32.2 kg/m2 98.2 [degF] 86 /min 110 mm[Hg] 80 mm[Hg] Racquel Restrepo [facility] 5 10:16:52 Social History Question Answer Notes LastModified by Organizat ion Details LastModified Time Tobacco Smoking Status Current Every Day Smoker Not Available [facility] 12/23/2019 03:43:25 How Much Tobacco Do You Smoke? 0.5 PPD [id number] Information not available 12/23/2019 Sex: Unknown Functional Status Question Answer Note LastModified by Organization D etails LastModified Time What is your level of alcohol consumption? None [id number] Information not available 12/23/2019 Mental Status None recorded. Family History Relationship Description Onset Age of this Age Resolved Age Notes LastModified by Organization Details LastModified Time Mother Essential hypertension [email or web address] Not available 10:15:20 Mother Hyperlipidem ia [email or web address] Not available 2014 10:15:20 Medical History Condition Response Acid Reflux (GERD) Y Gynecological HistoryNo gynecological history recorded. Obstetrics History GPAL:G 0 P 0 0 0 0 Past Encounters Encounter ID Performer Location Encounter Start Date Encounter Closed Date Diagnosis/Indication Diagnosis SNOMED-CT Code Diagnosis ICD10 Code Diagnosis Note [id number] LAURA OtooleP- Osman KUMAR (Adult Med) [address] [place] [address] 09/18/2014 09:52:56 09/18/2014 10:49:49 Adult health examination 258766789 Encouraged routine drier attendant/dental /vision apts as well as well balanced meals and active lifestyle. Gastroesop hageal reflux disease 958672585 Stable on famotidine 20 mg bid. Diet discussed. Tobacco user 897777118 C essation encouraged and recommende d. Obese 038292777 Diet an d exercise. [id number] MD Osman Thibodeaux (Adult Med) [address] [place] [address] 04/29/2015 14:56:35 04/30/2015 09:37:41 Infection of tooth 846183649 K04.7 PCN allergy. Clindamyci n 300 mg q 6 hours for 10 days. Health Concerns Section Related Observation LastModified by Organization Detai ls LastModified Time None Recorded Concern Status LastModified by Organization Details LastModified Time None Recorded Advance Directives Directive None Recorded Payers Insurance Date Sequence Insurance Name Policy Number Policy Pritchett Covered Member ID Pritchett Member ID Guarantor Name 02/05/2016 1 [facility] (MEDICAID HMO) [id number] Crystal Jana [id number] Crystal Jana Notes Date Note Type Note Provider Name and Address Organization Details Recorded Time 09/18/2014 text/html Failed ecig, patches, gum. Gets lightheaded and dizzy with them. Tdap- patient will check but believes was 2012. Dr. Tai [employer]. Emely Echols [facility] 09/18/2014 10:48:40 04/29/2015 text/html Symptoms for 36 hours. Pain in lower posterior jaw and using ibuprofen and tylenol. Pain 7/10 and throbbing and sharp in nature. Had tried to pop something in mouth but only bled. Can't eat or drink anything for 24 hours due to discomfort. ZEN Mcgee - [facility] 04/29/2015 15:35:28 OBGyn Episode No OBEpisode recorded.
--- OUTSIDE RECORDS SUMMARY | 2024-08-20 19:17 | XMS_ITS | Clinical Summary ---
Author Organization [address] Address [address] [place] [id number] Care Team Providers Care Credit Review Manager Name Role Phone FartunFannie Mary CONNER Primary Care Provider [phone] Allergies Active Allergy Reactions Criticality Noted Date Comments Amoxicillin Azithromycin Hives Medium 12/10/2017 Medications benzonatate (TESSALON) 100 mg capsuleIndicati ons:Cough Take 1 capsule (100 mg total) by mouth 3 (three) times a day as needed for cough 42 capsule 11/25/2023 Active Active Problems No known active problems Immunizations Immunization Administration Dates Next Due Tdap 08/13/2023 Social History Tobacco Use Types Packs/Day Years Used Date Smoking Tobacco: Never Assessed Comments No Sex and Gender Information Value Date Recorded Sex Assigned at Not on file 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 Gender Identity Not on file Sexual Orientation Not on file Obstetrics History Last Filed Vital Signs Vital Sign Reading Time Taken Comments Blood Pressure 136/78 11/25/2023 7:18 PM CDT Pulse 95 11/25/2023 7:18 PM CDT Temperature 37.4 C (99.3 F) 11/25/2023 7:18 PM CDT Respiratory Rate 18 11/25/2023 7:18 PM CDT Oxygen Saturation 97% 11/25/2023 7:18 PM CDT Inhaled Oxygen Concentration - - Weight 86.2 kg (190 lb) 11/25/2023 7:18 PM CDT Height 160 cm (5' 3) 11/25/2023 7:18 PM CDT Body Mass Index 33.66 11/25/2023 7:18 PM CDT Plan of Treatment Health Maintenance Due Date Last Done Comments Cervical Cancer Screening 1990 Depression Screening 1990 Hepatitis C Screening 1990 Varicella Vaccines (1 of 2 - 13+ 2-dose series) 12/29/2003 Hepatitis B Screening 2008 Regular Well Visit/Exam 18-64 2008 Influenza Vaccine (Season Ended) 2024 DTaP/Tdap/Td Vaccine (2 - Td or Tdap) 08/12/2033 08/13/2023 HPV Vaccines Aged Out No longer eligi ble based on patient's age to complete this topic Pneumococcal vaccine <65 Aged Out No longer eligible based on patient's age to complete this topic Insurance [facility] Care Teams Credit Review Manager Relationship Specialty Start Date End Date Fannie Willoughby NP [address] [place] [address] [place] [id number] PCP - General Nurse Practitioner 11/25/23
--- OUTSIDE RECORDS SUMMARY | 2024-08-20 19:17 | XMS_ITS | Referral Summary ---
Author Organization [address] Address [address] [place] [address] Care Team Providers Care Clinical Research Director Name Role Steven WilloughbyFannie Mary CONNER Primary Care Provider [phone] Allergies Active Allergy Reactions Criticality Noted Date [...] on file Legal Sex Female 2:29 AM [employer] Gender Identity Not on file Sexual Orientation Not on file Last Filed Vital Signs Vital Sign Reading [...] 11/25/2023 7:18 PM CDT Plan of Treatment Not on file Insurance [facility] Care Teams Clinical Research Director Relationship Specialty Start Date End Date Willoughby, Fannie Hernandez NP [address] [place] [address] [place] [id number] PCP - General Nurse Practitioner 11/25/23
--- OUTSIDE RECORDS SUMMARY | 2024-08-20 19:17 | XMS_ITS | Clinical Summary ---
Author Organization [facility] Address [address] [place] [address] Care Team Providers Care Sand Caster Apprentice Name Role Phone Unavailable Primary Care Provider Unavailabl e Source Comments [facility],non-owned Affiliates and Associated Physician Practices is amultiple site organization consisting of ambulatory clinics and hospital sitesin [place], [place], [place] and [place]. This disclosure is being madepursuant to the Care Everywhere program and may not contain all information available regarding this patient. 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 Gender Identity Not on file Sexual Orientation Not on file Plan of Treatment Health Maintenance Due Date Last Done Comments HIV SCREENING 2005 HEPATITIS C SCREENING 12/23/2008 DTAP/TDAP/TD VACCINES (1 - Tdap) 2009 HEPATITIS B VACCINE (1 of 3 - 19+ 3-dose series) 2009 COVID-19 VACCINE (1 - 2023-2 5 season) 2023 DEPRESSION SCREENING 02/20/2024 INFLUENZA VACCINE (Season Ended) 2024 ZOSTER VACCINE (1 of 2) 2040 HIB VACCINE Aged Out No longer eligi ble based on patient's age to complete this topic HPV VACCINE Aged Out No longer eligi ble based on patient's age to complete this topic MENINGOCOCCAL (Group B) VACC INE SHARED DECISION-MAKING Aged Out No longer eligibl e based on patient's age to complete this topic MENINGOCOCCAL GROUPS A/C/Y/W VACCINE Aged Out No longer eligible b ased on patient's age to complete this topic PNEUMOCOCCAL VACCINE Aged Out No long er eligible based on patient's age to complete this topic
--- OUTSIDE RECORDS SUMMARY | 2024-08-20 19:17 | XMS_ITS | Clinical Summary ---
Author Organization [facility] Address [address] [address] Phone Care Team Providers Care Pants Cutter Name Role Phone WilloughbyNaeemFanniecandy ROBERTS CNP Primary Care Provider [phone] Allergies Active Allergy Reactions Criticality Noted Date Comments Amoxicillin Hives 12/10/2017 Amoxicillin Unknown Azithromycin Hives 12/10/2017 Fish-Derived Products Hives 12/10/2017 Medications acyclovir (ZOVIRAX) 800 MG Tablet Take 800 mg by mouth daily. 4 8 Active cyclobenzaprine (FLEXERIL) 10 MG Tablet TAKE 1 TABLET BY MOUTH EVERY DAY NEEDED 1 8 Active ALLERGY 10 MG Tablet Take 10 mg by mouth daily. 3 8 Active tiZANidine (ZANAFLEX) 4 MG Tablet TAKE 1 TABLET BY MOUTH EVERYDAY AT BEDTIME 0 8 Active acyclovir (ZOVIRAX) 800 MG Tablet Take 800 mg by mouth 2 times daily. Active buPROPion, Smoking Deter, (ZYBAN) 150 MG TABLET SR 12 HR Take 150 mg by mouth 2 times daily. Active cyclobenzaprine (FLEXERIL) 10 MG Tablet Take 10 mg by mouth 3 times daily as needed. Active pantoprazole (PROTONIX) 40 MG Pack 40 mg by Per NG tube route daily. Active TiZANidine HCl 4 MG Capsule Take 4 mg by mouth 3 times daily. Active albuterol (VENTOLIN HFA) 108 (90 Base) MCG/ACT Aerosol Solution take 2 Puffs by inhalation every 4 hours as needed. Active propranolol (INDERAL) 10 MG Tablet TAKE 1 TABLET BY MOUTH THREE TIMES A DAY NEEDED FOR ANXIETY 0 9 Active raNITIdine (ZANTAC) 300 MG Tablet TAKE 1 TABLET BY MOUTH EVERYDAY AT BEDTIME 2 9 Active Immunizations Immunization Administration Dates Next Due TDAP Vaccine 08/13/2023 Social History Tobacco Use Types Packs/Day Years Used Date Smoking Tobacco: Every Day Cigarettes 0.5 9 Smokeless Tobacco: Never Tobacco Cessation:Ready to Q uit: Not Asked; Counseling Given: Not Answered Alcohol Use Standard Drinks/Week Comments No 0 (1 standard drink = 0.6 oz pur e alcohol) Comments No Sex and Gender Information Value Date Recorded Sex Assigned at Not on file Legal Sex Female 9:19 PM CDT Gender Identity Not on file Sexual Orientation Not on file Last Filed Vital Signs Vital Sign Reading Time Taken Comments Blood Pressure 139/80 12/05/2023 4:13 PM CDT Pulse 82 12/05/2023 4:13 PM CDT Temperature 36.8 C (98.3 F) 12/05/2023 1:39 PM CDT Respiratory Rate 16 12/05/2023 4:13 PM CDT Oxygen Saturation 100% 12/05/2023 4:13 PM CDT Inhaled Oxygen Concentration - - Weight 88.5 kg (195 lb) 12/05/2023 1:39 PM CDT Height 160 cm (5' 3) 12/05/2023 1:39 PM CDT Body Mass Index 34.54 12/05/2023 1:39 PM CDT Plan of Treatment Health Maintenance Due Date Last Done Comments Hepatitis C Virus (HCV) Screening 1990 Human Papillomavirus (HPV) Immunization (1 - 3-dose series) 2005 Hepatitis B Immunization (1 of 3 - 19+ 3-dose series) 2009 Pneumococcal Immunization Co mbined (1 of 2 - PCV) 2009 Pap Smear 12/29/2011 Cervical Cancer Screening (CCS) 2020 HPV/Cotest 2020 SARS-COV-2 Immunization ( - season) 2023 Influenza Immunization (Seas on Ended) 2024 Td Immunization Every 10 Yea rs (Adults With 1 Tdap) 08/12/2033 08/13/2023 Respiratory Syncytial Virus (RSV) Immunization (Adult) (1 - 1-dose 75+ series) 2065 DTaP/Tdap/Td Immunization Discontinued 08/13/2023 TdaP Immunization Discontinued 08/13/2023 Meningococcal Immunization (ACWY) Aged Out No longer eligible based on patient's age to complete this topic Rotavirus Immunization Aged Out No lo nger eligible based on patient's age to complete this topic Insurance [place] [place] Care Teams Pants Cutter Relationship Specialty Start Date End Date Willoughby, ALEJANDRA Greco, RECORD SEARCHER [address] [place] [id number] PCP - General Family Medicine 07/29/21
[2024-08-20 19:22] VITALS: BP 143/78; PULSE 80; RESP 16; TEMP 36.9; O2SAT 99
--- NOTE | 2024-08-20 19:43 | ED.DENTAL ---
HPI - Dental/Oral General Chief complaint: Dental/Oral Stated complaint: tooth pain Time Seen by Provider: 08/20/24 19:36 Source: patient and RN notes reviewed Mode of arrival: ambulatory Limitations: no limitations History of Present Illness HPI Narrative: Patient presents today complaining of left lower dental pain since yesterday. Reports she chipped a tooth 3 days ago. She has been taking Tylenol and ibuprofen with some mild relief. She has tried to get into her dentist but has been unable. Currently rates her pain 5/10. Denies fever, shortness of breath, or difficulty swallowing. Related Data Allergies Allergy/AdvReac Type Severity Reaction Status Date / Time amoxicillin Allergy Unknown Rash Verified 08/20/24 19:23 [facility] Comments At time of signature, I have reviewed and agree with nursing past medical, surgical, social and family history unless otherwise noted. Please see nursing chart for further information. There is no relevant family history pertinent to the presenting complaint Exam Narrative: GENERAL: Well-appearing, well-nourished, and in no acute distress. HEAD: Normocephalic, atraumatic. EYES: EOMI. No redness or drainage. Conjunctivae normal. ENT: Mucous membranes pink and moist. Tooth 18. Has a large portion missing out of the lateral aspect. No surrounding gingival erythema, edema, or obvious periapical abscess. No facial swelling noted. No trismus. NECK: Normal AROM. CHEST: No respiratory distress. EXTREMITIES: Normal range of motion. No edema. SKIN: Warm, dry, no rash. Capillary refill normal. Normal skin turgor. NEURO: No focal deficits. Alert and oriented x3. Gait steady. PSYCH: Normal affect. No signs of depression or anxiety. Course Course Level of Care: Express Care Visit Vital Signs Vital signs: Vital Signs Temperature 98.4 F 08/20/24 19:22 Pulse Rate 80 08/20/24 19:22 Respiratory Rate 16 08/20/24 19:22 Blood Pressure 143/78 H 08/20/24 19:22 Pulse Oximetry 99 08/20/24 19:22 Oxygen Delivery Room Air 08/20/24 19:22 Temperature 98.4 F 08/20/24 19:22 Pulse Rate 80 08/20/24 19:22 Respiratory Rate 16 08/20/24 19:22 Blood Pressure 143/78 H 08/20/24 19:22 Pulse Oximetry 99 08/20/24 19:22 Oxygen Delivery Room Air 08/20/24 19:22 Reviewed MDM - Dental/Oral MDM Narrative Medical decision making narrative: Patient is 33-year-old female with chipped tooth. She is allergic to amoxicillin and will be started on a course of clindamycin. States she has been told she needs a crown or extraction of this tooth instead of a filling, even before this most current chip. She denies any shortness of breath, difficulty swallowing, trismus to suggest any severe symptoms that would require transfer. She will try to make an appointment with her dentist as soon as possible. Vital signs stable. Anticipatory guidance given. Differential Diagnosis Differential diagnosis: Likely gingival abscess, dental caries, toothache, dental abscess and fracture of tooth Critical Care Time Critical Care Time Critical Care Time: No Discharge Plan Discharge Clinical Impression: Dental caries Patient Disposition: Home Condition: Stable Additional Instructions: Please take the clindamycin as prescribed until gone. Continue Tylenol or ibuprofen for pain if needed. Follow-up with your dentist as soon as possible. Go to the ER immediately if you develop worsening symptoms such as fever, severe facial swelling, shortness of breath, difficulty swallowing, difficulty opening or closing your mouth. Your blood pressure was elevated above 120/80 today at Urgent Care. This puts you above the threshold for follow up. Please schedule a followup visit with your personal physician as soon as possible, for further evaluation and treatment. Even blood pressure exceeding 120/80 may indicate pre-hypertension. Patient Language: Mozambican Prescriptions: New clindamycin HCl 300 mg capsule 300 mg PO Q6H 10 Days Qty: 40 0RF Follow-up/Referrals: Fartun,Fannie Dior APN [Primary Care Provider] - Time of Disposition: 19:48
== END 2024-08-20 19:54 | disposition home or self-care (01) ==
PROVIDERS: Emergency Provider Nurse Practitioner; PCP Nurse Practitioner Family
DX: K02.9 Dental caries, unspecified (principal)
CPT/HCPCS: 99213; G0463

== ENCOUNTER 2024-10-20 15:52 | Emergency (ER) | payer OTHER, SELFPAY ==
--- OUTSIDE RECORDS SUMMARY | 2024-10-20 15:55 | XMS_ITS | Clinical Summary ---
Author Organization [address] Address [address] [place] [id number] Care Team Providers Care Watch Repair Person Name Role Phone FartunFannie Mary CONNER Primary Care Provider Allergies Active Allergy Reactions Criticality Noted Date [...] on file Legal Sex Female 2:29 AM [employer] Gender Identity Not on file Sexual Orientation [...] Screening 2008 Regular Well Visit/Exam 18-64 2008 HPV Vaccines (1 - 3-dose SCD M series) 2017 Influenza Vaccine (#1) 2024 DTaP/Tdap/Td Vaccine (2 - Td or Tdap) 08/12/2033 08/13/2023 Pneumococcal vaccine <65 Aged Out No longer eligible based on patient's age to complete this topic Insurance [facility] Care Teams Watch Repair Person Relationship Specialty Start Date End Date Fannie Willoughby NP [address] [place] [id number] PCP - General Nurse Practitioner 11/25/23
--- OUTSIDE RECORDS SUMMARY | 2024-10-20 15:55 | XMS_ITS | Clinical Summary ---
Author Organization [facility] Address [address] [address] Phone Care Team Providers Care Caul Dresser Name Role Phone WilloughbyNaeemFanniecandy ROBERTS CNP Primary Care Provider [phone] Allergies Active Allergy Reactions Criticality Noted Date [...] Comments Hepatitis C Virus (HCV) Screening 1990 Hepatitis B Immunization (1 of 3 - 19+ 3-dose series) 2009 Pneumococcal Immunization Co mbined (1 of 2 - PCV) 2009 Pap Smear 12/29/2011 Human Papillomavirus (HPV) Immunization (1 - 3-dose SCDM series) 2017 Cervical Cancer Screening (CCS) 2020 HPV/Cotest 2020 Influenza Immunization (#1) 2024 SARS-COV-2 Immunization ( - season) 2024 Td Immunization Every 10 Yea rs [...] this topic Insurance [place] [place] Care Teams Caul Dresser Relationship Specialty Start Date End Date Fartun, ALEJANDRA Greco, KUNAL PCP - General Family Medicine 07/29/21
[2024-10-20 15:56] VITALS: BP 132/75; PULSE 84; RESP 18; TEMP 36.6; O2SAT 98
--- NOTE | 2024-10-20 16:52 | ED.DENTAL ---
HPI - Dental/Oral General Chief complaint: Dental/Oral Stated complaint: Jaw pain from tooth Time Seen by Provider: 10/20/24 16:40 Source: patient and RN notes reviewed Mode of arrival: ambulatory Limitations: no limitations History of Present Illness HPI Narrative: 33-year-old female presents to [facility] complaining dental pain for the last 1.5 weeks. Patient reports that she has a fractured tooth present to the left lower gum. [facility] and says has it scheduled to be removed removed this month on November 12. However the pain is becoming uncontrollable. Patient says she has been alternate with Tylenol and ibuprofen getting minimal relief. Patient says the pain radiates into her left ear. Related Data Allergies Allergy/AdvReac Type Severity Reaction Status Date / Time amoxicillin Allergy Unknown Rash Verified 10/20/24 16:18 Penicillins Allergy Unknown Unknown Verified 10/20/24 16:18 Review of Systems Review of Systems: CONSTITUTIONAL: Denies fever, chills, or sweats. EYES: Denies visual changes, redness, or discharge. ENT: Denies rhinorrhea, congestion, sore throat, or otalgia. MOUTH: positive for dental pain. CARDIOVASCULAR: Denies chest pain, palpitations, or edema. RESPIRATORY: Denies cough or dyspnea. GASTROINTESTINAL: Denies abdominal pain, nausea, vomiting, or diarrhea. GENITOURINARY: Denies dysuria or hematuria. SKIN: Denies rash or itching. MUSCULOSKELETAL: Denies back pain, joint pain, or myalgia. NEUROLOGIC: Denies headache, numbness, or weakness. PSYCHIATRIC: Denies anxiety or depression. All other systems reviewed are negative, except as documented in HPI. PMFSH Comments At the time of my signature, I reviewed and agree with the nursing past medical, surgical, social, and family history. There is no relevant family history pertinent to the patient complaint. Exam Narrative: GENERAL: This is a well-nourished, well-developed adult, in no apparent distress. They are non ill-appearing, nontoxic appearing. HEAD: normocephalic, atraumatic. EYES: Sclera clear/white. Conjunctiva normal. Vision is grossly intact. Extraocular movements intact EARS: External ears normal, auditory canals clear and without drainage, TMs normal without perforation. Hearing grossly intact. NOSE: External nose normal with no obvious nasal discharge, nasal turbinates without redness, no rhinorrhea. THROAT: Mucous membranes moist, posterior pharynx clear, without erythema or swelling. Uvula midline. OROPHARYNX: Fracture tooth present of the 2nd molar to left lower gum. Mild redness and swelling around the tooth. No pain or swelling under the tongue. Tongue is normal. No other suspicious lesions. There is mild tooth decay present. Gingivitis. No exudate. NECK: Neck supple, non-tender without lymphadenopathy, masses or thyromegaly. CARDIOVASCULAR: Regular rate and rhythm RESPIRATORY: Respiratory rate normal, respiratory effort nonlabored, no respiratory distress SKIN: warm, Dry, intact with no suspicious lesions or rash, good texture and turgor. NEURO: awake, alert, and oriented to person, place and time. There were no obvious focal neurologic abnormalities. EXTREMITIES: No joint tenderness, effusion, or edema noted. Course Course Emergency Course: Portions of this record may have been created with voice recognition software Level of Care: Express Care Visit Vital Signs Vital signs: Vital Signs Temperature 98 F 10/20/24 15:56 Pulse Rate 84 10/20/24 15:56 Respiratory Rate 18 10/20/24 15:56 Blood Pressure 132/75 10/20/24 15:56 Pulse Oximetry 98 10/20/24 15:56 Oxygen Delivery Room Air 10/20/24 15:56 Temperature 98 F 10/20/24 15:56 Pulse Rate 84 10/20/24 15:56 Respiratory Rate 18 10/20/24 15:56 Blood Pressure 132/75 10/20/24 15:56 Pulse Oximetry 98 10/20/24 15:56 Oxygen Delivery Room Air 10/20/24 15:56 Reviewed MDM - Dental/Oral MDM Narrative Medical decision making narrative: Patient's fractured tooth appears to be infected. Prescribed clindamycin. Will also prescribe ibuprofen and viscous lidocaine. Discussed physical exam findings. Advised supportive measures and signs/symptoms to go to the ER. Pt is appropriate for outpt treatment and f/u. Differential Diagnosis Differential diagnosis: Likely toothache, dental abscess and fracture of tooth Critical Care Time Critical Care Time Critical Care Time: No Discharge Plan Discharge Clinical Impression: Fracture of tooth Patient Disposition: Home Condition: Stable Instructions: Antibiotic Form, Toothache (ED) Additional Instructions: Take the antibiotics as directed. Take the ibuprofen as directed. Do not exceed more than 3200 mg ibuprofen a day. Do not take more than 800 mg ibuprofen at a time. You may take up to 1000 mg Tylenol every 6-8 hours. Do not exceed 1000 mg per dose, do exceed more than 4000 mg of Tylenol in a day. You may use viscous lidocaine as needed for pain in your mouth. Use a Q-tip and apply directly to the affected area. [place] your teeth and floss at least 2 times a day. Follow-up with dentist next week. If you developed worsening swelling, fevers, difficulty swallowing or breathing, difficulty opening her jaw, swelling under the tongue, or any other concerns please go to the ER immediately. Patient Language: Slovenian Prescriptions: New clindamycin HCl [Cleocin HCl] 150 mg capsule 450 mg PO TID 7 Days Qty: 63 0RF ibuprofen 800 mg tablet 800 mg PO Q6H PRN (Reason: pain) Qty: 30 0RF lidocaine HCl [Lidocaine Viscous] 2 % solution 1 applic mucous membrane TID PRN (Reason: pain) Qty: 100 0RF Follow-up/Referrals: Fartun,Fannie Dior APN [Primary Care Provider, Unknown] Time of Disposition: 16:45
== END 2024-10-20 16:51 | disposition home or self-care (01) ==
PROVIDERS: PCP Nurse Practitioner Family
DX: S02.5XXA Fracture of tooth (traumatic), initial encounter for closed fracture (principal); X58.XXXA Exposure to other specified factors, initial encounter; K21.9 Gastro-esophageal reflux disease without esophagitis
CPT/HCPCS: 99203; G0463